=== PATIENT | female | born 1935 | race Asian ===

== ENCOUNTER 2024-08-27 11:49 | Emergency (ER) | payer MEDICARE, MEDICAID ==
[~2024-08-27] VITALS: Ht 149.9 cm; Wt 54.0 kg
[~2024-08-27 11:49] MED LIST: AMLO-379 PO; CIPR-202 PO; DOCU-391 PO; FURO20TA4 PO; HYDR-3965 PO; METR-159 PO; NORT10CA81 PO; ROSU40TA89 PO
[2024-08-27 11:58] VITALS: TEMP 98.2
[2024-08-27 12:24] LABS: BASOPHILS % (AUTO) 0.2 % (0-1); MEAN CORPUSCULAR HGB CONC 33.8 g/dL (33.0-36.5); NEUTROPHILS # (AUTO) 0.1 X10'3 (1.8-7.7); RED CELL DISTRIBUTION WIDTH 15.7 % (11.5-14.5)
[2024-08-27 12:26] LABS: EOSINOPHILS % (AUTO) 0.2 % (0-6); HEMATOCRIT 25.9 % (35.0-45.0); HEMOGLOBIN 8.7 g/dl (12.0-16.0); LYMPHOCYTES # (AUTO) 1.6 X10'3 (1.1-4.8); LYMPHOCYTES % (AUTO) 94.6 % (21-51); MEAN CORPUSCULAR HEMOGLOBIN 32.7 PG (27.0-31.0); MEAN CORPUSCULAR VOLUME 96.6 FL (78-98); MEAN PLATELET VOLUME 6.7 FL (7.4-10.4); MONOCYTES % (AUTO) 1.4 % (2-12); NEUTROPHILS % (AUTO) 3.6 % (42-75); PLATELET COUNT 120 X10'3 (140-440); RED BLOOD COUNT 2.68 X10'6 (4.20-5.60); WHITE BLOOD COUNT 1.7 X10'3 (4.5-11.0)
[2024-08-27 12:40] LABS: ALANINE AMINOTRANSFERASE 37 U/L (12-78); ALBUMIN 2.8 G/DL (3.4-5.0); ALBUMIN/GLOBULIN RATIO 0.7 (1.1-1.5); ALKALINE PHOSPHATASE 88 IU/L (46-116); ANION GAP 5 (8-16); ASPARTATE AMINO TRANSFERASE 33 U/L (10-37); BILIRUBIN,TOTAL 0.3 MG/DL (0.1-1.0); BLOOD UREA NITROGEN 22 MG/DL (7-18); BUN/CREATININE RATIO 28.6 (10.0-20.0); CALCIUM 8.2 MG/DL (8.5-10.1); CHLORIDE 101 MMOL/L (99-107); CREATININE 0.77 MG/DL (0.40-0.90); GLUCOSE 127 MG/DL (70-104); LIPASE 24 U/L (16-77); POTASSIUM 3.7 MMOL/L (3.5-5.1); SODIUM 135 MMOL/L (135-145); TOTAL CARBON DIOXIDE 29.2 MMOL/L (24-32); TOTAL PROTEIN 6.7 G/DL (6.4-8.2); eCRCL 36 ML/MIN; eGFR 71 ML/MIN
[2024-08-27 13:01] LABS: ANISOCYTOSIS FEW; PLATELET ESTIMATE DECREASED; POIKILOCYTOSIS FEW
[2024-08-27 13:02] LABS: ELLIPTOCYTES FEW; TEAR DROP CELLS FEW
[2024-08-27 13:09] LABS: SMUDGE CELLS 1+; TOTAL CELLS COUNTED 100
[2024-08-27] MEDS: normal saline 500ml IV soln 500 ML IV ONE (16:00)
--- NOTE | 2024-08-27 16:11 | Physician Documentation ---
History of Present Illness ~ Chief Complaint: Bloody Stools Stated Complaint: RECTAL BLEEDING Time Seen by MD: 14:40 Mode of Arrival: Wheelchair HPI 88-year-old female patient who was discharged from this hospital Friday which is day before yesterday after colonoscopy and rectal tumor biopsy done came back to the emergency room because the family noticed bloody stool. She has no other complaints. She has history of leukopenia and thrombocytopenia and she is to see primary care provider on Friday to get referral to hematology computer support specialist instructor as well as colorectal surgeons. Biopsy result is pending. She strained to have bowel movement today and noticed blood in the food today. Other symptoms. Medication Reconciliation Allergies: Coded Allergies: shrimp (Verified Allergy, Unknown, 08/27/24) Scheduled Amlodipine/Valsartan (Amlodipine-Valsartan 5-160 mg), 1 TAB PO DAILY, (Reported) Ciprofloxacin HCl (Ciprofloxacin HCl), 1 TAB PO BID Furosemide (Furosemide), 1 TAB PO DAILY Metronidazole* (Flagyl*), 1 TAB PO TID Nortriptyline Hcl (PAMELOR capsule), 1 CAP PO BID, (Reported) Rosuvastatin Calcium (Rosuvastatin Calcium), 1 TAB PO DAILY, (Reported) Scheduled PRN Docusate Sodium (Docusate Sodium), 1 CAP PO DAILY PRN for constipation, (Reported) Hydrocodone Bit/Acetaminophen 5/325 MG (Friendship 5/325 MG), 1 TAB PO Q6H PRN for pain Past Medical History Patient History: FH: heart attack FHx: diabetes mellitus Review of Systems ROS As stated above in the HPI, otherwise all systems are reviewed and negative. Physical Exam Vital Signs: Temperature: 98.2, Source: Temporal, Heart Rate: 70, Respiratory Rate: 18, BP: 125/55, Pulse Oximetry: 98, Weight: 54.000 Oxygen Flow Rate: 0 Physical Exam Reviewed vital signs and they are well within normal range. Const: Not in acute cardiopulmonary distress Head: Atraumatic Eyes: Normal Conjunctiva ENT: Normal External Ears, Nose and Mouth. Moist mucous membranes Neck: Full range of motion. No meningismus Resp: Clear to auscultation bilaterally. Normal work of breathing Cardio: Regular rate and rhythm, no murmurs. Skin well perfused Abd: Soft, non-tender, non-distended. Normal bowel sounds. No rebound or guarding Rectal examination revealed bloody liquids but no fresh blood. Hemoccult positive Skin: No petechiae or rashes. Warm and dry Back: No midline or flank tenderness Ext: No cyanosis, or edema Neuro: Awake and alert Psych: Normal Mood and Affect Progress Results/Orders Results/Orders Orders - ROSANNE RETANA MD Urinalysis, Cult If Indicated (08/27/24 12:03) Completed Orders - ROSANNE RETANA MD Cbc/Diff (08/27/24 12:03) BMP (08/27/24 12:03) Lipase (08/27/24 12:03) CMP (08/27/24 12:03) Man Diff (08/27/24 12:14) Normal Saline 500ml Iv Soln (Sodium Chlo (08/27/24 15:15) Vital Signs 08/27/24 08/27/24 08/27/24 11:58 14:30 15:30 Temp 98.2 Pulse 80 70 Resp 16 18 B/P (MAP) 102/50 125/55 (78) Pulse Ox 96 98 O2 Flow Rate 0 Laboratory Tests Test 08/27/24 12:14 White Blood Count 1.7 L Red Blood Count 2.68 L Hemoglobin 8.7 L Hematocrit 25.9 L Mean Corpuscular Volume 96.6 Mean Corpuscular Hemoglobin 32.7 H Mean Corpuscular Hemoglobin Concent 33.8 Red Cell Distribution Width 15.7 H Platelet Count 120 L Mean Platelet Volume 6.7 L Neutrophils (%) (Auto) 3.6 L Lymphocytes (%) (Auto) 94.6 H Monocytes (%) (Auto) 1.4 L Eosinophils (%) (Auto) 0.2 Basophils (%) (Auto) 0.2 Neutrophils # (Auto) 0.1 L Lymphocytes # (Auto) 1.6 Monocytes # (Auto) 0.0 Eosinophils # (Auto) 0.0 Basophils # (Auto) 0.0 CBC Comment Differential Total Cells Counted 100 Neutrophils % (Manual) 4.0 L Band Neutrophils % 1.0 Lymphocytes % (Manual) 95.0 H Smudge Cells 1+ Platelet Estimate Decreased Red Blood Cell Morphology Perf Poikilocytosis Few Basophilic Stippling Anisocytosis Few Tear Drop Cells Few Elliptocytes Few Sodium Level 135 Potassium Level 3.7 Chloride Level 101 Carbon Dioxide Level 29.2 Anion Gap 5 L Blood Urea Nitrogen 22 H Creatinine 0.77 Estimated GFR/1.73 m2 71 BUN/Creatinine Ratio 28.6 H Glucose Level 127 H Calcium Level 8.2 L Total Bilirubin 0.3 Aspartate Amino Transf (AST/SGOT) 33 Alanine Aminotransferase (ALT/SGPT) 37 Alkaline Phosphatase 88 Total Protein 6.7 Albumin 2.8 L Globulin 3.9 Albumin/Globulin Ratio 0.7 L Lipase 24 Chemistry Comments Medical Decision Making Findings During the physical examination, the findings suggestive of acute life- threatening condition such as JVD, tracheal deviation, acidotic breathing, noisy stridorous breath sounds, pulses paradoxus, muffled heart sounds, unequal breath sounds, abdominal rigidity and rebound tenderness, focal neurological deficits, cool clammy skin, severe hypotension, severe tachycardia or bradycardia are absent. Her CBC showed WBC 1.7 H and H8.7 and 25.9 platelets 120. Sodium 135 potassium 3.7 chloride 101 bicarb 29.2 BUN 22 creatinine 0.77 glucose 127. I have spoken to Dr. Dyson, the rib cutter who did the colonoscopy and he said it is not unusual to have little bit of bloody stool. The patient is reassured and discharged from the emergency room with stool softener. She needs to follow up with her primary care on Friday as scheduled. DISCLAIMER Inadvertent spelling and grammatical errors,inadvertent assistant hvac mechanic errors,s yntax errors, grammatical errors, and spelling errors are likely due to EMR/dictation software use and do not reflect on the overall quality of patient care. Note that the electronic time recorded on this note does not necessarily reflect the actual time of the patient encounter. Departure Disposition: 01 HOME / SELF CARE / HOMELESS Impression: Primary Impression: Bloody stool Condition: Stable Discharge Instructions: Bloody Stools Additional Instructions: Thank you so much for visiting [facility] Emergency room. Please ask your nurse or provider if you have questions about your care today and do not leave until all your questions have been answered. Please use any medications given as directed and follow-up with your doctor in the next 1-3 days. You may also use motrin and tylenol as needed for pain unless instructed otherwise by your provider or nurse. Indications for more urgent follow-up have been discussed, but you may return to the Emergency Department at ANY time for any worrisome or worsening symptoms. Please keep your appointment with your primary care provider on Friday without fail. You need to have hematology/oncology and colorectal Surgical appointment as soon as possible. Referrals: NO PRIMARY CARE PROVIDER (PCP) Prescriptions Lactulose (Lactulose) 10 Gram/15 Ml Solution 30 ML PO QAM for constipation, #900 ML 0 Refills Take it regularly and if she has very loose stool change it to as needed. Prov: ROSANNE RETANA MD 08/27/24 Education Educated: Patient, Family Educated regarding: diagnosis, treatment, need for follow up Signature Scribe Signature: x Attestation: ROSANNE Whelan MD August 27, 2024 16:11
[2024-08-27] MEDS ORDERED: LACT-373 PO (16:13)
[2024-08-27 16:43] VITALS: BP 119/60; PULSE 71; RESP 16; O2SAT 96
== END 2024-08-27 16:46 | disposition home or self-care (01) ==
LOC: ER 11:50
DX: K92.1 Melena (principal); Z91.018 Allergy to other foods; Z79.899 Other long term (current) drug therapy
CPT/HCPCS: 36415; 80053; 83690; 85007; 85008; 85025; 99283